=== PATIENT | male | born 1945 | race Caucasian/White ===

== ENCOUNTER 2021-05-24 10:02 | Emergency (ER) | payer OTHER, SELFPAY ==
--- NOTE | 2021-05-24 10:27 | XR_ITS ---
PROCEDURE: XR WRIST LT MIN 3V CLINICAL INDICATION: fall COMPARISON: No exams were available for comparison FINDINGS: No fracture or dislocation. No lytic or blastic change. There is normal mineralization. Osteoarthritic change 1st metacarpal-carpal junction. No acute fracture or dislocation. Thin lucency is noted projecting over the articular surface of the radius a which may represent a artifact or small cleft in distal radius. Not typical appearance for fracture. IMPRESSION: No acute findings. Dictated by: Venu Curry MD 05/24/2021 10:53 Venu Curry MD in [place] 05/24/2021 10:53
--- NOTE | 2021-05-24 10:27 | XR_ITS ---
PROCEDURE: XR HAND LT MIN 3V CLINICAL INDICATION: fall Injury with pain COMPARISON: No exams were available for comparison FINDINGS: Osteoarthritic changes are present at the 1st metacarpal-carpal junction. No acute fracture or dislocation. IMPRESSION: No acute findings. Dictated by: Venu Curry MD 05/24/2021 10:51 Venu Curry MD in [place] 05/24/2021 10:51
[2021-05-24 10:56] VITALS: BP 185/88; PULSE 57; RESP 16; TEMP 36.8; O2SAT 98; BMI 23.3
--- NOTE | 2021-05-24 11:00 | HMH.EDUTC ---
[facility] Clinical Impression: Gamekeeper's thumb of left hand Qualifiers: Encounter type: initial encounter Qualified Code(s): S53.32XA - Traumatic rupture of left ulnar collateral ligament, initial encounter Disposition: Home, Self-Care Condition on Discharge: Good Additional Instructions: Follow up with ortho due to possible ligament injury Take order to PT for thumb spica splint Prescriptions: Naproxen [Naproxen 500mg tab] 500 mg PO BID 10 Days #20 tab Transmission Status: Pending to [id number] Referrals: Jacques Son JR, MD [Physician] - Time of Disposition: 11:12 Medical Decision Making - Steven Inquiry Pt receiving controlled substance: No - Radiology Data #1 Image(s): Hand Image Reviewed: Yes I have reviewed radiologist's interpretation Preliminary Findings: Normal/NAD PROCEDURE: XR HAND LT MIN 3V CLINICAL INDICATION: fall Injury with pain COMPARISON: No exams were available for comparison FINDINGS: Osteoarthritic changes are present at the 1st metacarpal-carpal junction. No acute fracture or dislocation. IMPRESSION: No acute findings. #2 Image(s): Wrist Image Reviewed: Yes I have reviewed radiologist's interpretation Preliminary Findings: Normal/NAD PROCEDURE: XR WRIST LT MIN 3V CLINICAL INDICATION: fall COMPARISON: No exams were available for comparison FINDINGS: No fracture or dislocation. No lytic or blastic change. There is normal mineralization. Osteoarthritic change 1st metacarpal-carpal junction. No acute fracture or dislocation. Thin lucency is noted projecting over the articular surface of the radius a which may represent a artifact or small cleft in distal radius. Not typical appearance for fracture. IMPRESSION: No acute findings. Medical Decision Narrative: Patient declined occupational therapy referral. Encouraged to follow up with PCP re: possible ligament injury [facility] [place] - General Stated complaint: AO 0924, left wrist pain Time Seen by Provider: 05/24/21 11:01 - History of Present Illness Provider Complaint: Patient fell 4-5 weeks ago. He fell on outstretched left hand. Has had pain and swelling at the base of his left thumb. Radiates across left hand. Onset (ago): week(s) (5) Location: left, upper extremity Relieving factors: none Exacerbating factors: none Associated symptoms: denies other symptoms Treatments prior to arrival: none - Related Data Previous Rx's Medication Instructions Recorded Naproxen [Naproxen 500mg tab] 500 mg PO BID 10 Days #20 tab 05/24/21 Allergies Allergy/AdvReac Type Severity Reaction Status Date / Time No Known Allergies Allergy Verified 05/24/21 10:55 [facility] History - Hepatitis A Screen Attestation statement:: This patient has been screened for Hepatitis A risk factors. I have reviewed the patient's past medical history: Yes ROS Obtained: Yes All systems reviewed & no additional complaints - Musculoskeletal Musculoskeletal: Reports other (pain left hand) Physical Exam - General General appearance: alert, in no apparent distress - Head Head exam: normocephalic - Eye Eye exam: Present: PERRL - ENT ENT exam: Present: normal oropharynx, TM's normal bilaterally - Respiratory Respiratory exam: Present: normal lung sounds bilaterally - Cardiovascular Cardiovascular exam: Present: regular rate, normal rhythm - Expanded Upper Extremity Exam Left Forearm/Wrist exam: Present: full ROM, tenderness over anatomical snuff box Hand exam: Present: tenderness, swelling Neuromotor exam: Normal: thumb IP flexion (painful) - Neurological Exam Neurological exam: Present: alert, oriented X3 - Psychiatric Psychiatric exam: Present: normal affect, normal mood - Skin Skin exam: Present: warm, dry, intact
[2021-05-24 11:22] VITALS: BP 185/88; PULSE 57; RESP 16; TEMP 36.8
== END 2021-05-24 11:22 | disposition home or self-care (01) ==
PROVIDERS: Emergency Provider Physician Assistant
DX: S53.32XA Traumatic rupture of left ulnar collateral ligament, initial encounter (principal); W01.0XXA Fall on same level from slipping, tripping and stumbling without subsequent striking against object, initial encounter
CPT/HCPCS: 73110; 73130; 99202; G0463

== ENCOUNTER 2021-05-24 11:30 | Outpatient (RCR) | payer OTHER, SELFPAY | END 2021-05-24 12:30 | disposition home or self-care (01) | LOC: OT 11:30 | PROVIDERS: Visit Provider Physician Assistant | DX: S53.32XD Traumatic rupture of left ulnar collateral ligament, subsequent encounter (principal) | CPT/HCPCS: 97763 ==

== ENCOUNTER → 2021-11-11 09:43 | Outpatient (CLI) | payer MEDICARE, SELFPAY ==
--- NOTE | 2021-11-11 09:53 | MR_ITS ---
FINAL REPORT CLINICAL HISTORY: DJD, 1ST DIGIT LT HAND, R/O OCCULT FRACTURE. lt hand swelling at 1st digit. pt fell and landed on hand [id number] ago. painful to touch. FINDINGS: Multiplanar MR imaging was obtained of the left hand. On coronal images there is extensive marrow edema involving the proximal portion of the 1st metacarpal with apparent curvilinear signal abnormalities at the base of the 1st metacarpal which could represent nondisplaced fracture. Extensive marrow edema at is also seen of the exam with the articular surface of the trapezium and 1st metacarpal demonstrating an irregular an undulating appearance best seen on image 9 of series 10 consistent with moderately advanced changes of osteoarthritis. Axial images demonstrate the flexor and extensor tendons to be intact. There is no localized inflammatory reaction or fluid collection. IMPRESSION: Extensive marrow edema involving the proximal portion of the 1st metacarpal with curvilinear signal abnormalities at the base of the 1st metacarpal likely representing nondisplaced fracture. Moderately advanced changes of osteoarthritis as above. Reviewed, Interpreted and Dictated by uJstin Patel MD Transcribed by Maryse Hurd Authenticated by Justin Patel MD on 11/11/2021 02:41:41 PM [facility]
== END ==
PROVIDERS: PCP Family Medicine; Visit Provider Emergency Medicine
DX: M18.12 Unilateral primary osteoarthritis of first carpometacarpal joint, left hand (principal)
CPT/HCPCS: 73218

== ENCOUNTER → 2022-12-10 14:04 | Outpatient (CLI) | payer MEDICARE, SELFPAY | PROVIDERS: PCP Family Medicine; Visit Provider Physician Assistant | DX: R00.1 Bradycardia, unspecified (principal) | CPT/HCPCS: 93225 ==

== ENCOUNTER → 2022-12-19 08:51 | Outpatient (CLI) | payer MEDICARE, SELFPAY ==
--- NOTE | 2022-12-19 08:54 | US_ITS ---
FINAL REPORT CLINICAL HISTORY: bilateral leg pain, ABN ANGI per home health nurse. Bradycardia with irregularity FINDINGS: Complete ankle brachial indices were obtained. The right ANGI is 1.0. The left ANGI is 0.9. IMPRESSION: Borderline ANGI on the left. ANGI on the right is within normal limits. Reviewed, Interpreted and Dictated by Clint Ambriz III, MD Transcribed by Mirian Carcamo Authenticated and [facility]
--- NOTE | 2022-12-19 08:54 | CA_ITS ---
FINAL REPORT CLINICAL HISTORY: bilateral leg pain, gout of rt toe, abn ANGI FINDINGS: Color Doppler, duplex Doppler and compression sonography of the bilateral lower extremities was performed. There is no evidence of deep venous thrombosis from the level of the groin to the calf. The deep veins are patent and compressible. IMPRESSION: No evidence of deep venous thrombosis bilateral lower extremities. Reviewed, Interpreted and Dictated by Clint Ambriz III, MD Transcribed by Mirian Carcamo Authenticated and [facility]
== END ==
PROVIDERS: PCP Family Medicine; Visit Provider Physician Assistant
DX: R06.02 Shortness of breath; R42 Dizziness and giddiness; M79.604 Pain in right leg; M79.605 Pain in left leg; R00.1 Bradycardia, unspecified; I73.9 Peripheral vascular disease, unspecified; I63.9 Cerebral infarction, unspecified; R53.83 Other fatigue
CPT/HCPCS: 93306; 93923; 93970

== ENCOUNTER → 2022-12-24 15:22 | Outpatient (CLI) | payer MEDICARE, SELFPAY ==
[2022-12-24 17:07] LABS: Alanine Aminotransferase 30 U/L (12-78); Alkaline Phosphatase 75 U/L (38-126); Anion Gap 17.7 mEq/L (5-15); Aspartate Amino Transferase 42 U/L (17-59); Bilirubin,Indirect 0.4 mg/dL (0.0-0.9); Bilirubin,Total 0.4 mg/dl (0.2-1.3); Bilirubin,Unconjugated 0.5 mg/dL (0.0-1.1); Blood Urea Nitrogen 25 mg/dl (9-20); Calcium 8.6 mg/dl (8.4-10.2); Carbon Dioxide 24 mmol/L (22.0-30.0); Chloride 103 mmol/L (98-107); Cholesterol 227 mg/dl (140-200); Estimated Glomerular Filt Rate 42 ml/min (>60); GFR (African American) 51 ML/MIN (>60); Glucose 80 mg/dl (74-100); HDL Cholesterol 45 mg/dl (40-60); Potassium 4.7 mmoL/L (3.5-5.1); Sodium 140 mmol/L (136-145); Total Protein,Serum 6.8 g/dl (6.3-8.2); Triglycerides 130 mg/dl (30-150); VLDL Cholesterol 26 mg/dL (0-40)
[2022-12-24 17:22] LABS: Basophils % 0.6 % (0.1-2.0); Eosinophils # 0.2 K/mm3 (0.0-0.4); Hematocrit 38.5 % (42.0-52.0); Hemoglobin 12.6 g/dL (14.1-18.0); Lymphocytes # 2.1 K/mm3 (0.7-4.5); Lymphocytes % 28.5 % (10-50); Mean Corpuscular HGB Conc 32.7 g/dL (31.8-35.4); Mean Corpuscular Hemoglobin 29.7 pg (27.0-31.2); Mean Corpuscular Volume 90.9 fl (80-94); Mean Platelet Volume 7.6 fl (7.4-10.4); Monocytes # 0.4 K/mm3 (0.1-1.0); Monocytes % 5.4 % (1.7-9.3); Neutrophils # 4.6 K/mm3 (1.8-7.8); Neutrophils % 62.5 % (37.0-80.0); Platelet Count 284 K/mm3 (142-424); Red Blood Count 4.24 M/mm3 (4.60-6.20); Red Cell Distribution Width 13.1 % (11.5-17.5); White Blood Count 7.3 K/mm3 (4.8-10.8)
[2022-12-24 17:25] LABS: Free T4 (Free Thyroxine) 0.84 ng/dl (0.78-2.19)
[2022-12-24 17:40] LABS: Thyroid Stimulating Hormone 4.02 uIU/mL (0.465-4.68)
== END ==
PROVIDERS: PCP Family Medicine; Visit Provider Physician Assistant
DX: R06.00 Dyspnea, unspecified; I49.3 Ventricular premature depolarization; R42 Dizziness and giddiness; I63.9 Cerebral infarction, unspecified; I73.9 Peripheral vascular disease, unspecified; M79.604 Pain in right leg; M79.605 Pain in left leg; R41.3 Other amnesia; R53.83 Other fatigue; R06.83 Snoring; R40.0 Somnolence
CPT/HCPCS: 36415; 80048; 80061; 80076; 83735; 84439; 84443; 85025

== ENCOUNTER → 2023-01-05 10:15 | Outpatient (CLI) | payer MEDICARE, SELFPAY ==
--- NOTE | 2023-01-05 10:24 | NM_ITS ---
APPROVED REPORT Exam: Nuclear Stress Test Indication: HTN, C.P., SOB, FATIGUE, BRUIT, H/A, H/O STROKE Stress Tech: Annika Maradiaga NM Tech:Kelly VogtJAVON miguel RT (R)(N)(M) Ht: 5 ft 10 in Wt: 162 lbs HR: 48 bpm BP: 155/74 mmHg BSA: 1.91 m2 Rhythm: NSR TID: 1.06 BMI: 23.2 History: HTN, C.P., SOB, FATIGUE, BRUIT, H/A, H/O STROKE Procedure: Patient received 0.4 mg of intravenous Lexiscan, resting heart rate 48 bpm, resting blood pressure 155/74 mmHg, with Lexiscan maximum heart rate achieved was 91 bpm which is 64 % of the maximum predicted heart rate and blood pressure was 168/76 mmHg. With Lexiscan, patient denied any complaint of chest pain. Cardiac Stress and Resting SPECT Images: Cardiac Stress and Resting SPECT images were obtained using technetium 99m Myoview 31.8 mCi stress and 10.19 mCi at rest. Resting and stress imaging in both supine and prone positions demonstrate a large-sized, moderate, fixed perfusion defect in the basal to mid inferior LV wall. THere is also a medium-sized, mild, fixed perfusion defect in the anterior LV wall. Gated imaging demonstrates mild reduction in global LV systolic function. There is moderate hypokinesis in the basal to mid anterior and inferior LV pyle. LVEF is calculated at 46%. Biventricular dilatation is present. Conclusion: Large-sized, moderate, fixed perfusion defect in the basal to mid inferior LV wall. THere is also a medium-sized, mild, fixed perfusion defect in the anterior LV wall. No evidence of reversible ischemia. Gated imaging demonstrates mild reduction in global LV systolic function. There is moderate hypokinesis in the basal to mid anterior and inferior LV pyle. LVEF is calculated at 46%. Biventricular dilatation is present. Electronically signed by : Erika Watson, 01/05/2023 17:19:41
--- NOTE | 2023-01-05 10:24 | CT_ITS ---
FINAL REPORT CLINICAL HISTORY: dizziness/memory loss FINDINGS: Mild atrophy and chronic ischemic white matter changes are noted. No cortical edema is present. There is no mass or hemorrhage. Ventricles are normal. Bone windows show no skull fracture or obvious obstructive lesion. IMPRESSION: 1. No acute intracranial abnormality or obvious mass. 2. Atrophy and chronic ischemic white matter changes as above. Reviewed, Interpreted and Dictated by Phani Armendariz MD Transcribed by Alyssia Lozano Authenticated and [facility]
--- NOTE | 2023-01-05 11:31 | CA_ITS ---
FINAL REPORT TECHNIQUE: Chinchilla scale, color and spectral doppler images of the bilateral carotid arteries were obtained. CLINICAL HISTORY: DIZZINESS,HX CVA,HTN FINDINGS: Peak systolic velocity in the right internal carotid artery is 163.6 cm/sec. The internal carotid to common carotid artery ratio is 2.15. There is plaque in the distal right common carotid artery and proximal right internal carotid artery. These measurements are compatible with 50-69% stenosis in the right internal carotid artery. The right vertebral artery is normal in direction. Peak systolic velocity in the left internal carotid artery is 113.1cm/sec. The internal carotid to common carotid artery ratio is 1.5 cm. There is mild plaque present in the left carotid artery. These measurements are compatible with less than 50% stenosis in the left internal carotid artery. The left vertebral artery is normal in direction. 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 Less than 50% stenosis in the left internal carotid artery. Antegrade flow in the vertebral arteries bilaterally. Reviewed, Interpreted and Dictated by Syl Hussein MD Transcribed by Maggie Crowder Authenticated and [facility]
--- NOTE | 2023-01-05 14:56 | CA_ITS ---
APPROVED REPORT Exam: Pharmacologic Technologist: Annika Maradiaga Ht: 5 ft 9 in Wt: 164 lbs BSA: 1.90 m2 HR: 48 bpm BP: 155/74 mmHg Rhythm: Sinus bradycardia, occasional PACs Indications: Dyspnea Medical History Medications: Amlodipine,,,,, Ibuprofen,,,,, Stress Test Details Test: LEXISCAN HR Resting HR: 46 bpm Max Heart Rate (APMHR): 143 bpm Max HR Achieved: 92 bpm Target HR (85% APMHR): 122 bpm % of APMHR: 64 Recovery HR: 68 bpm BP Resting BP: 155.0/74.0 mmHg Max BP: 168.0/76.0 mmHg Recovery BP: 168.0/76.0 mmHg ECG Resting ECG: Sinus bradycardia Stress ECG: Normal sinus rhythm, no ST changes Arrhythmia: PACs Recovery ECG: No ST changes Recovery Arrhythmia: PACs Clinical Exercise duration: 04:00 min Highest Stage Achieved: Exercise capacity: n/a METs Stress ECG Conclusion Symptoms: Headache Arrhythmias/Ectopy: Frequent PACs ST-T Changes: NSR, no ST changes Conclusion: Unremarkable pharmacologic ECG stress test. Myoview images are reported separately. Test Summary REST . . . . . . . Resting REST 03:13 . . 46 . 155/ 74 . . Stage 1 . . . . . . . Myoview Injected Stage 1 01:00 . . 70 . . . . Stage 2 01:00 . . 76 . . . . Stage 3 . . . . . . . headache Stage 3 01:00 . . 59 . 162/ 72 . . Stage 4 01:00 . . 58 . . . Stop exercise at 04:00 RECOVERY 01:00 . . 61 . 162/ 76 . . RECOVERY 02:00 . . 68 . 168/ 76 . . RECOVERY 02:30 . . 75 . 168/ 76 . . Electronically signed by : Erika Watson, 01/05/2023 17:09:59
== END ==
LOC: RAD 10:16
PROVIDERS: PCP Family Medicine; Visit Provider Physician Assistant
DX: R06.09 Other forms of dyspnea; R42 Dizziness and giddiness; R00.1 Bradycardia, unspecified; I63.9 Cerebral infarction, unspecified; I73.9 Peripheral vascular disease, unspecified; M79.604 Pain in right leg; M79.605 Pain in left leg; R06.83 Snoring; R40.0 Somnolence; R53.83 Other fatigue; R41.3 Other amnesia
CPT/HCPCS: 70450; 78452; 93017; 93880; A9502; J2785

== ENCOUNTER 2023-02-04 08:18 | Day surgery (SDC) | payer MEDICARE, SELFPAY ==
[2023-02-04] VITALS (12 sets, daily range): BP systolic 117–154; BP diastolic 54–113; PULSE 46–98; RESP 15–18; O2SAT 93–98; BMI 24.7
--- NOTE | 2023-02-04 07:11 | IR_ITS ---
APPROVED REPORT Patient Location: Outpatient PROCEDURES Left heart catheterization Left ventriculogram Selective coronary angiogram INDICATION High risk abnormal Myoview, Angina pectoris, Mild left ventricular dysfunction Informed consent was obtained prior to the procedure. COMPLICATIONS None Estimated Blood Loss: Less than 10 mls TECHNIQUE One percent lidocaine used to anesthetize the right anterior aspect of the wrist. The right radial artery was accessed via the Seldinger technique. A 6 Malian sheath was placed in the right radial artery. 150 mg magnesium sulfate, 800 mcg of nitroglycerin, 1mg Lidocaine and 5000 U Heparin were given through the arterial sheath. The papa catheter was also used to perform left heart catheterization, left ventriculogram and selective coronary angiogram. At the end of the procedure the sheath was removed good hemostasis was achieved using Traclet band, patient was transferred to the postop holding area in stable condition. ANGIOGRAPHIC RESULTS The left main artery Has a distal concentric 70% stenosis The left anterior descending artery Has complex 80% proximal to mid vessel stenoses. A large first diagonal artery has an ostial concentric 80% stenosis The circumflex artery Gives rise to a large ramus intermedius which has a proximal concentric 60 to 70% stenosis. The true circumflex artery is small and has an ostial 90% stenosis however does not produce any significant obtuse marginal arteries The right coronary artery Is a dominant vessel and proximally subtotally occluded. The distal vessel fills via right to right and [id number] collaterals The [place] ventriculogram reveals Ejection fraction 45% The left ventricular end-diastolic pressure 20 mmHg IMPRESSION Severe to critical three-vessel coronary disease as described above Reduced ejection fraction Elevated LVEDP PLAN 1. Patient will be referred to [facility] for urgent evaluation of coronary bypass grafting. 2. Continue high intensity statin along with aspirin 81 mg daily Electronically signed by : Ulysses Lima MD 02/04/2023 14:08:59
[2023-02-04 08:55] LABS: Basophils % 0.4 % (0.1-2.0); Eosinophils # 0.5 K/mm3 (0.0-0.4); Eosinophils % 6.1 % (0.1-12.0); Hematocrit 37.5 % (42.0-52.0); Hemoglobin 12.2 g/dL (14.1-18.0); Lymphocytes # 2.1 K/mm3 (0.7-4.5); Lymphocytes % 27.5 % (10-50); Mean Corpuscular HGB Conc 32.5 g/dL (31.8-35.4); Mean Corpuscular Hemoglobin 29.2 pg (27.0-31.2); Mean Corpuscular Volume 89.8 fl (80-94); Mean Platelet Volume 8.6 fl (7.4-10.4); Monocytes # 0.4 K/mm3 (0.1-1.0); Monocytes % 5.2 % (1.7-9.3); Neutrophils # 4.6 K/mm3 (1.8-7.8); Neutrophils % 60.8 % (37.0-80.0); Platelet Count 246 K/mm3 (142-424); Red Blood Count 4.18 M/mm3 (4.60-6.20); Red Cell Distribution Width 13.1 % (11.5-17.5); White Blood Count 7.5 K/mm3 (4.8-10.8)
[2023-02-04 09:05] LABS: Anion Gap 16.3 mEq/L (5-15); Blood Urea Nitrogen 22 mg/dl (9-20); Calcium 8.7 mg/dl (8.4-10.2); Carbon Dioxide 25 mmol/L (22.0-30.0); Chloride 103 mmol/L (98-107); Creatinine Clearance Estimated 41 mL/min (50-200); Estimated Glomerular Filt Rate 42 ml/min (>60); GFR (African American) 51 ML/MIN (>60); Glucose 93 mg/dl (74-100); Potassium 4.3 mmoL/L (3.5-5.1); Sodium 140 mmol/L (136-145)
== END 2023-02-05 14:10 | disposition home or self-care (01) ==
PROVIDERS: PCP Family Medicine; Visit Provider Internal Medicine
DX: I25.119 Atherosclerotic heart disease of native coronary artery with unspecified angina pectoris (principal); R94.30 Abnormal result of cardiovascular function study, unspecified; R00.1 Bradycardia, unspecified; R53.83 Other fatigue; R42 Dizziness and giddiness
CPT/HCPCS: 80048; 85025; 93458; 99152; C1725; C1769; J1644; Q9967

== ENCOUNTER → 2023-04-07 08:54 | Outpatient (CLI) | payer MEDICARE, SELFPAY ==
--- NOTE | 2023-04-07 09:11 | CA_ITS ---
APPROVED REPORT EXAM: Comprehensive 2D, Doppler, and color-flow Echocardiogram Manager Publishing: Shelley Billingsley RT(R) Ht: 5 ft 9 in Wt: 150lbs BSA: 1.83 BP: 114/69 mmHg Rhythm: NSR Indications: CP, DOAN, bradycardia, hx CVA, CAD, hx of CABG x 5, AVR bioprosthetic several months ago per patient. 2D Dimensions LVOT 1.99 cm (M/F) 1.5-2.5 LA Volume 62.00 mL LA Volume Index 33.88 mL/m2 (M/F) 16-34 M-Mode Dimensions RVDd 3.61 cm (0.9-2.6) LA Diam 4.20 cm (1.9-4.0) LVDd 5.72 cm (3.5-5.7) Ao Diam 3.37 cm (2.0-3.7) LVDs 4.47 cm (3.5-5.7) IVSd 1.02 cm (0.6-1.1) PWd 0.79 cm (0.6-1.1) EF (Teich) 43.60% FS 21.90% EDV (Teich) 161.30 mL ESV (Teich) 91.00 mL LV Diastology E Decel Time 287.00 (160-240 msec) E/A Ratio 0.6 MED E' 6.20 (< 7 cm/sec) E'/MED E' Ratio 10.23 (>14) LAT E' 10.20 (<10 cm/sec) E/LAT E' Ratio 6.22 (>14) Aortic Valve LVOT Max 123.00 (70-110 cm/s) LVOT VTI 26.20 cm AoV Peak Lisandro. 174.00 (50-130 cm/s) AO Peak GR. 12.20 mmHg AO Mean GR. 6.00 (<5 mmHg) AO VTI 36.88 (18-25 cm) RICHARD (VTI) 2.21 (2.5-4.5 cm2) Mitral Valve MV E Max Lisandro. 63.00 (40-130 cm/s) MV A Velocity 106.00 (40-130 cm/s) E/A Ratio 0.60 MV Decel. Time 287.00 (160-240 ms) MV PHT 84.00 ms Left Ventricle The left ventricle is normal size. The left ventricular systolic function is low normal. The left ventricular ejection fraction is within the normal range. There is increased LV wall thickness. Mild concentric hypertrophy is present. There is borderline global hypokinesis present. There is moderate hypokinesis of the anterolateral LV wall. Diastolic function is indeterminate. LVEF is 50% Right Ventricle Right ventricle is mildly dilated. The right ventricular systolic function is normal. Atria Left atrium is mildly dilated. The right atrium size is mildly dilated. There is no Doppler evidence of interatrial shunt. Aortic Valve s/p bioprosthetic AVR. The prosthesis is well-seated. The AV leaflets are not very well visualized, but grossly appear to have normal motion in the visualized images. Peak velocity is 2.0 m/s. Mean AV gradient is 8mmHg. Max AV gradient is 16 mmHg. No evidence of hemodynamically significant aortic stenosis. No evidence of central or paravalvular AI. Mitral Valve There is mild mitral annular calcification (MAC). The mitral valve is normal in structure. No evidence of mitral valve stenosis. There is mild to moderate mitral regurgitation. The MR jet is posteriorly directed. Tricuspid Valve The tricuspid valve is thin and pliable. Trace tricuspid regurgitation. There is insufficient TR jet to estimate RVSP. Pulmonic Valve The pulmonary valve is normal in structure. Trace pulmonic regurgitation. Great Vessels The aortic root is normal in size. Ascending aorta is normal in caliber. IVC is normal in size and collapses >50% with inspiration. Pericardium There is no pericardial effusion. Other Information Study Quality: Fair Conclusion Low-normal LV systolic function (LVEF 50%) Anterolateral LV wall hypokinesis Mild RV dilation with normal RV function s/p bioprosthetic AVR. No central or paravalvular AI. No (Peak velocity is 2.0 m/s. Mean AV gradient is 8mmHg. Max AV gradient is 16 mmHg) Mild to moderate MR Electronically signed by : Erika Watson, 04/07/2023 21:11:56
== END ==
PROVIDERS: PCP Family Medicine; Visit Provider Physician Assistant
DX: R06.00 Dyspnea, unspecified; I25.810 Atherosclerosis of coronary artery bypass graft(s) without angina pectoris; R00.1 Bradycardia, unspecified; I65.29 Occlusion and stenosis of unspecified carotid artery; M79.604 Pain in right leg; M79.605 Pain in left leg; R06.83 Snoring; R40.0 Somnolence; R41.3 Other amnesia; R53.83 Other fatigue; R94.30 Abnormal result of cardiovascular function study, unspecified
CPT/HCPCS: 93306

== ENCOUNTER 2023-04-10 11:20 | Emergency (ER) | payer MEDICARE, SELFPAY ==
[2023-04-10] VITALS (9 sets, daily range): BP systolic 133–190; BP diastolic 56–96; PULSE 68–88; RESP 13–27; TEMP 36.6–37; O2SAT 95–100; BMI 21.5
--- NOTE | 2023-04-10 11:23 | ECG_ITS ---
APPROVED REPORT Exam: Resting ECG HR:102 bpm ECG Measurements Heart Rate 102 AXES CA 166 P 71 QRSd 92 QRS 70 QT 345 T 56 QTc 404 Conclusion SINUS TACHYCARDIA INCOMPLETE RIGHT BUNDLE BRANCH BLOCK [90+ ms QRS DURATION, TERMINAL R IN V1/V2, 40+ ms S IN I/aVL/V4/V5/V6] NONSPECIFIC T-WAVE ABNORMALITY ABNORMAL RHYTHM ECG UNCONFIRMED REPORT Electronically signed by : Dilan Renteria MD 04/11/2023 06:49:23
[2023-04-10 11:52] LABS: Basophils % 0.2 % (0.1-2.0); Eosinophils # 0.2 K/mm3 (0.0-0.4); Eosinophils % 1.9 % (0.1-12.0); Hematocrit 39.1 % (42.0-52.0); Hemoglobin 11.8 g/dL (14.1-18.0); Lymphocytes # 1.2 K/mm3 (0.7-4.5); Lymphocytes % 12.8 % (10-50); Mean Corpuscular HGB Conc 30.3 g/dL (31.8-35.4); Mean Corpuscular Hemoglobin 27.9 pg (27.0-31.2); Mean Corpuscular Volume 92.2 fl (80-94); Mean Platelet Volume 6.6 fl (7.4-10.4); Monocytes # 0.3 K/mm3 (0.1-1.0); Monocytes % 2.7 % (1.7-9.3); Neutrophils # 7.9 K/mm3 (1.8-7.8); Neutrophils % 82.4 % (37.0-80.0); Platelet Count 392 K/mm3 (142-424); Red Blood Count 4.23 M/mm3 (4.60-6.20); White Blood Count 9.6 K/mm3 (4.8-10.8)
[2023-04-10 11:54] LABS: Chloride 102 mmol/L (98-107)
[2023-04-10 11:55] LABS: Potassium 4.5 mmoL/L (3.5-5.1); Sodium 141 mmol/L (136-145)
--- NOTE | 2023-04-10 11:56 | PC.NURSE ---
Visitor at . Warm blanket provided.
[2023-04-10 11:57] LABS: Blood Urea Nitrogen 27 mg/dl (9-20); Estimated Glomerular Filt Rate 39 ml/min (>60); GFR (African American) 47 ML/MIN (>60)
[2023-04-10 11:58] LABS: Alanine Aminotransferase 27 U/L (12-78); Albumin Level 3.9 g/dl (3.5-5.0); Albumin/Globulin Ratio 0.8 (1.1-1.8); Alkaline Phosphatase 111 U/L (38-126); Anion Gap 21.5 mEq/L (5-15); Aspartate Amino Transferase 30 U/L (17-59); Bilirubin,Total 0.6 mg/dl (0.2-1.3); Calcium 9.9 mg/dl (8.4-10.2); Carbon Dioxide 22 mmol/L (22.0-30.0); Glucose 113 mg/dl (74-100); Total Protein,Serum 8.9 g/dl (6.3-8.2)
[2023-04-10 12:05] LABS: Creatinine Clearance Estimated 34 mL/min (50-200)
[2023-04-10 12:07] LABS: NT Pro Brain Natriuretic Pep. 3430 pg/mL (0-450)
--- NOTE | 2023-04-10 12:07 | HMH.EDGENADL ---
Discharge Plan Disposition Patient Disposition: Home, Self-Care Prescriptions Prescriptions: New nitroglycerin 0.4 mg tablet, sublingual 0.4 mg sublingual Q5M Qty: 30 0RF Rx Instructions: do not exceed 3 doses per episode No Action pantoprazole 40 mg tablet,delayed release (DR/EC) 40 mg PO BID metoprolol tartrate 25 mg tablet 12.5 mg PO BID rosuvastatin [Crestor] 40 mg tablet 40 mg PO DAILY Qty: 90 3RF aspirin [Adult Low Dose Aspirin] 81 mg tablet,delayed release (DR/EC) 81 mg PO DAILY Referrals Follow up/Referrals: Ulysses Lima MD [Staff Physician] - See instructions Activity Restrictions/Add. Instructions Additional Instructions/Restrictions: Call your family doctor to establish care for this visit to the emergency department and schedule follow-up within 48 hours to ensure improvement. If you have any worsening of your condition or any other concerning signs or symptoms, return to the emergency department or your primary care doctor for further evaluation. Follow-up closely with cardiology. Nitroglycerin sent to the pharmacy Clinical Impressions Clinical Impression: Stable angina Discharge ED Provider: Fidel Hernandez General Adult [facility] General Chief complaint: Chest Pain Stated complaint: Chest Pain Time Seen by Provider: 04/10/23 11:21 Mode of Arrival: Wheelchair Source of Information: Patient Limitations: No Limitations Description of Symptoms (Recalled from ER Triage Doc. by RN): Pt arrives to ed via wheelchair from home with c/o left sided chest pain that began last night before going to sleep. Pt states that the pain has not eased up. Pt does report that he had a cabgx5 in January. Denies n/v. Does report that it radiates into his left arm. History of Present Illness HPI narrative: 78-year-old with history of 5 vessel CABG in January presenting with chest pain. Patient states that chest pain started 1 night prior to arrival in 04/09. He was sitting in his chair when it started. Left side of chest, radiates to left side of jaw, not associated with numbness, tingling, weakness. Patient states that he has had intermittent diaphoresis as well as shortness of breath. Pain currently mild in intensity, intermittent and not associated with position. Related Data Home Medications Medication Instructions Recorded Confirmed aspirin 81 mg tablet,delayed 81 mg PO DAILY Coronary Artery 02/04/23 03/17/23 release (Adult Low Dose Aspirin) Disease metoprolol tartrate 25 mg tablet 12.5 mg PO BID 03/17/23 03/17/23 pantoprazole 40 mg tablet,delayed 40 mg PO BID 03/17/23 03/17/23 release Previous Rx's Medication Instructions Recorded rosuvastatin 40 mg tablet (Crestor) 40 mg PO DAILY #90 tabs 03/25/23 nitroglycerin 0.4 mg sublingual 0.4 mg sublingual Q5M #30 tabs 04/10/23 tablet Allergies Allergy/AdvReac Type Severity Reaction Status Date / Time naproxen AdvReac Verified 03/17/23 09:56 [facility] Disclaimer: The information contained in this section may have been updated after the patient was seen, as this information can be updated by other users. Medical History (Updated 04/10/23 @ 15:47 by Fidel Hernandez MD) Abnormal result of cardiovascular function study Daytime somnolence Dizziness Dyspnea LV dysfunction Memory loss Snoring Stenosis of carotid artery Social History (Updated 02/04/23 @ 08:42 by Yumiko Billingsley RN) Smoking Status: Never smoker alcohol intake: never current occupational status: other Travel in the last 8 weeks: None ROS Obtained: Yes All systems reviewed & no additional complaints except as documented Physical Exam General General appearance: alert, in no apparent distress and other ( Nondiaphoretic) Head Head exam: atraumatic and normocephalic Eye Eye exam: Present normal appearance, PERRL and EOMI ENT ENT exam: Present mucous membranes moist Neck Neck exam: Present normal inspection, full ROM and trachea midline
[2023-04-10 12:10] LABS: Troponin I 0.02 ng/ml (0.00-0.034)
--- NOTE | 2023-04-10 12:42 | XR_ITS ---
FINAL REPORT CLINICAL HISTORY: cp, weakness and sob COMPARISON: None FINDINGS: Cardiomegaly is noted. Postoperative changes are seen from median sternotomy. There is mild bibasilar atelectasis or scar. There is no pneumothorax. The bony thorax is intact. IMPRESSION: Mild bibasilar atelectasis or scar. Cardiomegaly, prior midline sternotomy. Reviewed, Interpreted and Dictated by Clint Ambriz III, MD Transcribed by Maggie Crowder Authenticated and [facility]
--- NOTE | 2023-04-10 15:07 | PC.NURSE ---
Second trop collected and sent to lab
[2023-04-10 15:27] LABS: Troponin I 0.02 ng/ml (0.00-0.034)
== END 2023-04-10 16:06 | disposition home or self-care (01) ==
PROVIDERS: Emergency Medicine; Emergency Provider Emergency Medicine; PCP Family Medicine
DX: R07.9 Chest pain, unspecified (principal); I20.9 Angina pectoris, unspecified; I65.29 Occlusion and stenosis of unspecified carotid artery
CPT/HCPCS: 71045; 80053; 83880; 84484; 85025; 93005; 99285

== ENCOUNTER 2023-09-14 16:10 | Outpatient (CLI) | payer MEDICARE, SELFPAY | END 2023-09-14 23:59 | LOC: RAD 16:11 | PROVIDERS: PCP Family Medicine; Visit Provider Nurse Practitioner Family | DX: R41.3 Other amnesia (principal) ==

== ENCOUNTER 2023-10-05 12:58 | Outpatient (CLI) | payer MEDICARE, SELFPAY ==
--- NOTE | 2023-10-05 13:22 | MR_ITS ---
FINAL REPORT CLINICAL HISTORY: memory loss. headache COMPARISON: None FINDINGS: Multiplanar MR imaging of the brain was performed without contrast. There is age-appropriate atrophy. There are scattered foci of increased T2 signal in the cerebral white matter that have a nonspecific appearance but likely represent severe chronic ischemic/gliotic changes. There is no evidence of intracranial hemorrhage or mass. No abnormal ventricular dilatation is identified. No abnormal extra-axial fluid collection is seen. No abnormality is seen on the diffusion weighted images. The posterior fossa and brainstem are unremarkable. Normal major vessel vascular flow voids are seen. There is opacification of multiple right mastoid air cells consistent with mastoiditis. There is also mucoperiosteal thickening and several paranasal sinuses consistent with chronic sinusitis. IMPRESSION: Age-appropriate atrophy and severe chronic ischemic/gliotic changes. No acute intracranial abnormality. Right mastoiditis and chronic mild sinusitis. Reviewed, Interpreted and Dictated by Clint Ambriz III, MD Transcribed by Maggie Crowder Authenticated and [facility]
--- NOTE | 2023-10-05 13:22 | MR_ITS ---
FINAL REPORT CLINICAL HISTORY: encephalopathy. short term memory loss. headache COMPARISON: None FINDINGS: Multiple projection images of the brain arterial vasculature were obtained without contrast. The raw data images were also reviewed. There is degradation of overall image quality secondary to motion artifact. The distal internal carotid, distal vertebral and basilar arteries have an unremarkable appearance without evidence of significant stenosis or occlusion. The proximal anterior, middle and posterior cerebral arteries have an unremarkable appearance. There is no evidence of significant stenosis or major branch occlusion. No aneurysm or vascular malformation is identified. IMPRESSION: Unremarkable MR angiogram of the head. Reviewed, Interpreted and Dictated by Clint Ambriz III, MD Transcribed by Maggie Crowder Authenticated and [facility]
== END 2023-10-05 23:59 ==
LOC: RAD 12:59
PROVIDERS: PCP Nurse Practitioner Family; Visit Provider Nurse Practitioner Family
DX: R41.3 Other amnesia; I25.810 Atherosclerosis of coronary artery bypass graft(s) without angina pectoris; I63.9 Cerebral infarction, unspecified; G93.49 Other encephalopathy; I65.23 Occlusion and stenosis of bilateral carotid arteries
CPT/HCPCS: 70544; 70551

== ENCOUNTER 2023-12-02 10:59 | Outpatient (CLI) | payer MEDICARE, SELFPAY ==
[2023-12-02 11:22] LABS: Basophils # 0.1 K/mm3 (0-0.2); Basophils % 0.9 % (0.1-2.0); Eosinophils # 0.5 K/mm3 (0.0-0.4); Eosinophils % 6.7 % (0.1-12.0); Hematocrit 38.8 % (42.0-52.0); Hemoglobin 12.5 g/dL (14.1-18.0); Lymphocytes # 1.8 K/mm3 (0.7-4.5); Lymphocytes % 26.9 % (10-50); Mean Corpuscular HGB Conc 32.2 g/dL (31.8-35.4); Mean Corpuscular Hemoglobin 29.8 pg (27.0-31.2); Mean Corpuscular Volume 92.6 fl (80-94); Mean Platelet Volume 8.5 fl (7.4-10.4); Monocytes # 0.3 K/mm3 (0.1-1.0); Monocytes % 4.8 % (1.7-9.3); Neutrophils # 4.1 K/mm3 (1.8-7.8); Neutrophils % 60.6 % (37.0-80.0); Platelet Count 208 K/mm3 (142-424); Red Blood Count 4.19 M/mm3 (4.60-6.20); Red Cell Distribution Width 14.4 % (11.5-17.5); White Blood Count 6.7 K/mm3 (4.8-10.8)
[2023-12-02 12:03] LABS: Free T4 (Free Thyroxine) 0.75 ng/dl (0.78-2.19)
[2023-12-02 12:11] LABS: Alanine Aminotransferase 33 U/L (12-78); Albumin Level 4.3 g/dl (3.5-5.0); Alkaline Phosphatase 84 U/L (38-126); Anion Gap 12.2 mEq/L (5-15); Aspartate Amino Transferase 41 U/L (17-59); Bilirubin,Direct 0.1 mg/dl (0.0-0.4); Bilirubin,Indirect 0.3 mg/dL (0.0-0.9); Bilirubin,Total 0.4 mg/dl (0.2-1.3); Bilirubin,Unconjugated 0.4 mg/dL (0.0-1.1); Blood Urea Nitrogen 27 mg/dl (9-20); Calcium 9.5 mg/dl (8.4-10.2); Carbon Dioxide 26 mmol/L (22.0-30.0); Chloride 108 mmol/L (98-107); Chol/HDL Ratio 3.1 (1-3.5); Cholesterol 166 mg/dl (140-200); Estimated Glomerular Filt Rate 45 ml/min (>60); GFR (African American) 55 ML/MIN (>60); Glucose 98 mg/dl (74-100); HDL Cholesterol 54 mg/dl (40-60); Potassium 5.2 mmoL/L (3.5-5.1); Sodium 141 mmol/L (136-145); Total Protein,Serum 7.1 g/dl (6.3-8.2); Triglycerides 175 mg/dl (30-150); VLDL Cholesterol 35 mg/dL (0-40)
[2023-12-02 12:22] LABS: Direct LDL Cholesterol 76.91 mg/dL (100-129)
[2023-12-02 12:45] LABS: Thyroid Stimulating Hormone 5.05 uIU/mL (0.465-4.68)
== END 2023-12-02 23:59 | disposition home or self-care (01) ==
LOC: LAB 11:00
PROVIDERS: PCP Family Medicine; Visit Provider Nurse Practitioner
DX: R06.09 Other forms of dyspnea; R06.00 Dyspnea, unspecified; R42 Dizziness and giddiness; R00.1 Bradycardia, unspecified; R60.9 Edema, unspecified; I25.708 Atherosclerosis of coronary artery bypass graft(s), unspecified, with other forms of angina pectoris; I65.29 Occlusion and stenosis of unspecified carotid artery; R41.3 Other amnesia; I63.9 Cerebral infarction, unspecified; I49.3 Ventricular premature depolarization; R53.83 Other fatigue; E11.9 Type 2 diabetes mellitus without complications; K21.9 Gastro-esophageal reflux disease without esophagitis; I11.9 Hypertensive heart disease without heart failure
CPT/HCPCS: 36415; 80048; 80061; 80076; 84439; 84443; 85025; 93270

== ENCOUNTER 2023-12-07 08:46 | Outpatient (CLI) | payer MEDICARE, SELFPAY ==
--- NOTE | 2023-12-07 08:46 | CA_ITS ---
APPROVED REPORT EXAM: Comprehensive 2D, Doppler, and color-flow Echocardiogram Furniture Inspector: Nicole Gomez RVT Ht: 5 ft 10 in Wt: 181lbs BSA: 2.00 BP: 153/100 mmHg Indications: SOA,BRADYCARDIA,BIOPROSTHETIC AVR,CAD,SMOKER,HTN,HLD 2D Dimensions LA Volume 76.90 mL LA Volume Index 38.45 mL/m2 (M/F) 16-34 M-Mode Dimensions RVDd 3.96 cm (0.9-2.6) LA Diam 4.26 cm (1.9-4.0) LVDd 5.87 cm (3.5-5.7) LVDs 4.30 cm (3.5-5.7) IVSd 0.85 cm (0.6-1.1) PWd 0.55 cm (0.6-1.1) EF (Teich) 51.50% FS 26.70% EDV (Teich) 171.20 mL TAPSE 1.75 (<1.7) ESV (Teich) 83.10 mL LV Diastology E Decel Time 253 (160-240 msec) E/A Ratio 0.8 Aortic Valve RICHARD Index 0.73 cm2/m2 AoV Peak Lisandro. 221.0 (50-130 cm/s) AO Peak GR. 19.50 mmHg AO Mean GR. 11.30 (<5 mmHg) AO VTI 55.9 (18-25 cm) RICHARD (VTI) 1.50 (2.5-4.5 cm2) Mitral Valve MV E Max Lisandro. 60.0 (40-130 cm/s) MV A Velocity 77.0 (40-130 cm/s) E/A Ratio 0.78 MV PHT 74.0 ms Pulmonary Valve PV Peak Velocity 52.0 (50-150 cm/s) Tricuspid Valve TR P. Velocity 234.00 cm/s RAP Estimate 10.00 mmHg RVSP 32.00 mmHg Left Ventricle The left ventricle is normal size. The left ventricular systolic function is low normal. The septum is asynchronous. There is increased LV wall thickness. There is normal LV segmental wall motion. Transmitral Doppler flow pattern suggests impaired LV relaxation. LVEF is 50%. Right Ventricle Right ventricle is mildly dilated. Right ventricle is mildly hypokinetic. Atria The left atrium is mild dilated. Right atrium is mildly dilated. There is no Doppler evidence of atrial shunt. Aortic Valve s/p bioprosthetic aortic valve. The prosthesis is well-seated. Peak velocity 2.2 m/s. Mean AV gradient 11 mmHg. Max AV gradient 18 mmHg. Trace aortic regurgitation. Mitral Valve The mitral valve leaflets are mildly thickened. No evidence of mitral valve stenosis. Mild to moderate mitral regurgitation. Tricuspid Valve The tricuspid valve leaflets are thin and pliable. Mild tricuspid regurgitation. RVSP is 15-20 mmHg. Pulmonic Valve The pulmonary valve is normal in structure. Trace pulmonic regurgitation. Great Vessels The aortic root is normal in size. The ascending aorta is not well-visualized. IVC is normal in size and collapses >50% with inspiration. Pericardium There is no pericardial effusion. Other Information Study Quality: Fair Conclusion Low normal LV systolic function (LVEF 50%). Mild RV dilation with mild reduction in RV function. Biatrial dilation. Mild to moderate MR. Mild TR. s/p bioprosthetic AVR. Peak velocity 2.2 m/s. Mean AV gradient 11 mmHg. Max AV gradient 18 mmHg. Compared to prior study from 12/2022, the LVEF and AVR parameters are overall unchanged. Electronically signed by : Erika Watson MD 12/11/2023 00:30:15
--- NOTE | 2023-12-09 09:36 | PC.NURSE ---
Patient refused the overnight pulse oximetry
== END 2023-12-07 23:59 | disposition home or self-care (01) ==
LOC: RT 08:46
PROVIDERS: PCP Family Medicine; Visit Provider Nurse Practitioner
DX: I25.708 Atherosclerosis of coronary artery bypass graft(s), unspecified, with other forms of angina pectoris (principal); I51.9 Heart disease, unspecified; I65.29 Occlusion and stenosis of unspecified carotid artery; R41.3 Other amnesia; R42 Dizziness and giddiness; R06.09 Other forms of dyspnea; I63.9 Cerebral infarction, unspecified; R00.1 Bradycardia, unspecified; I49.3 Ventricular premature depolarization; R53.83 Other fatigue
CPT/HCPCS: 93306

== ENCOUNTER 2024-05-16 08:38 | Outpatient (CLI) | payer MEDICARE, SELFPAY ==
--- NOTE | 2024-05-16 08:38 | CT_ITS ---
FINAL REPORT CLINICAL HISTORY: look at renals FINDINGS: Post contrast axial imaging of the aorta was obtained..This study was performed with techniques to keep radiation doses as low as reasonably achievable (ALARA). Individualized dose reduction techniques using automated exposure control or adjustment of mA and/or kV according to the patient''s size were employed. There is mild ectasia of the left common iliac artery measuring up to 16 mm. There is mild narrowing at the origin of the celiac axis. SMA and ANSON are patent. There is 70% stenosis of the proximal right renal artery best seen on coronal image 37 of series 601. There is 50% stenosis of the proximal left renal artery. There is scarring at the lung bases. Gallstones are seen in the fundus of the gallbladder. Spleen, pancreas and adrenal glands are unremarkable. There are bilateral renal cysts measuring up to 3.4 cm in diameter. IMPRESSION: Bilateral renal artery stenosis, 70% on the right and 50% on the left. Correlate with catheter directed angiogram. Reviewed, Interpreted and Dictated by Justin Patel MD Transcribed by Maryse Hurd Authenticated and [facility]
[2024-05-16 09:08] LABS: Chloride 108 mmol/L (98-107)
[2024-05-16 09:09] LABS: Potassium 4.4 mmoL/L (3.5-5.1); Sodium 140 mmol/L (136-145)
[2024-05-16 09:11] LABS: Blood Urea Nitrogen 22 mg/dl (9-20); Estimated Glomerular Filt Rate 42 ml/min (>60); GFR (African American) 51 ML/MIN (>60)
[2024-05-16 09:12] LABS: Anion Gap 12.4 mEq/L (5-15); Calcium 9.5 mg/dl (8.4-10.2); Carbon Dioxide 24 mmol/L (22.0-30.0); Glucose 122 mg/dl (74-100)
[2024-05-16] MEDS: IOPAMIDOL-370 (76%);100ML BOTTLE 100 ML IV (09:41)
[2024-05-16] MEDS: SODIUM CHLORIDE 0.9% 10ML SYR (RAD ONLY) 10 ML IV (09:41)
[2024-05-16] MEDS: 0.9 % SODIUM CHLORIDE 50 ML VIAL IV (09:41)
== END 2024-05-16 23:59 | disposition home or self-care (01) ==
LOC: RAD 08:38
PROVIDERS: PCP Physician Assistant; Visit Provider Physician Assistant
DX: I65.29 Occlusion and stenosis of unspecified carotid artery (principal); I70.1 Atherosclerosis of renal artery; I73.9 Peripheral vascular disease, unspecified
CPT/HCPCS: 36415; 74175; 80048; Q9967